=== PATIENT | female | born 1980 | race Caucasian/White ===

== ENCOUNTER 2019-03-19 07:56 | Outpatient (CLI) | payer BC ==
--- NOTE | 2019-03-19 09:11 | MRI ---
MRI BRAIN WITH AND WITHOUT IV CONTRAST: HISTORY: Cerebral aneurysm COMPARISON: 05/18/2016 CORRELATION:CTA head 05/29/2016 FINDINGS: No restricted diffusion is seen. No evidence of infarct, hemorrhage, mass, midline shift or abnormal extra-axial fluid collections is noted. No abnormal postcontrast enhancement is seen. The ventricular size is appropriate and the basilar cisterns are patent. IMPRESSION: Normal MRI of the brain. RECOMMENDATION:The tiny infundibulum at the origin of the right posterior communicating artery noted on the CTA of 05/29/2016 should be evaluated with a CTA or MRA.
[2019-03-19] MEDS ORDERED: Gadobenate Dimeglumine 529 MG/1 ML (20ML VIAL) ONE (11:50)
== END 2019-03-19 07:57 | disposition home or self-care (01) ==
LOC: BICMRI 07:56
PROVIDERS: ATTEND Psychiatry & Neurology Neurology
DX: I67.1 Cerebral aneurysm, nonruptured (principal)
CPT/HCPCS: 70553; A9577